=== PATIENT | female | born 1975 | race Caucasian/White ===

== ENCOUNTER 2023-12-25 13:26 | Emergency (ER) | payer MEDICAID, OTHER ==
[~2023-12-25] VITALS: Ht 162.6 cm; Wt 65.9 kg
[2023-12-25 14:27] LABS: Basophils # (auto) 0 10 ^3/uL (0-0.2); Basophils % (auto) 0.8 % (0.0-2.0); Eosinophils # (auto) 0 10 ^3/uL (0-0.8); Eosinophils % (auto) 0.8 % (0.0-7.0); Hemoglobin 13.6 g/dL (12.2-16.2); Lymphocytes # (auto) 1.5 10 ^3/uL (0.4-5.4); Mean Corpuscular Hemoglobin 32.4 pg (28.0-32.0); Mean Corpuscular Hgb Conc. 33.9 g/dL (32.0-36.0); Mean Corpuscular Volume 95.6 fL (80.0-100.0); Monocytes # (auto) 0.2 10 ^3/uL (0-1.3); Monocytes % (auto) 6.8 % (0.0-12.0); Neutrophils # (auto) 1.6 10 ^3/uL (1.6-8.6); Neutrophils % (auto) 47.6 % (37.0-80.0); Red Blood Cells 4.19 10^6/uL (4.0-5.20); Red Cell Distribution Width 12.6 % (11.8-14.3); White Blood Cell 3.4 10^3/uL (4.4-10.8)
[2023-12-25 14:40] LABS: Alanine Aminotransferase 48 U/L (7-40); Albumin 4.1 g/dL (3.2-4.8); Alkaline Phosphatase 76 U/L (46-116); Anion Gap 5 (5-15); Aspartate Aminotransferase 42 U/L (13-40); BUN/Creatinine Ratio 17.1 (10.0-20.0); Bilirubin, Total 0.5 mg/dL (0.2-1.0); Blood Urea Nitrogen 12 mg/dL (9-23); Calcium 9.3 mg/dL (8.7-10.4); Carbon Dioxide 30 mmol/L (20-30); Chloride 105 mmol/L (98-107); Glucose 84 mg/dL (74-106); Lipase 77 U/L (12-53); Potassium 3.9 mmol/L (3.5-5.1); Sodium 140 mmol/L (136-145); Total Protein 6.4 g/dL (5.7-8.2)
[2023-12-25 14:42] VITALS: PULSE 45; RESP 14; O2SAT 99
[2023-12-25 14:54] VITALS: BP 133/74; PULSE 56; RESP 16; O2SAT 100
[2023-12-25] MEDS ORDERED: PANT40TA2 PO (15:36)
[2023-12-25] MEDS: PANTOPRAZOLE 40 MG TAB PO ONE (15:41)
== END 2023-12-25 16:08 | disposition home or self-care (01) ==
LOC: EDBD 13:26 → ER 13:26
DX: K29.00 Acute gastritis without bleeding (principal); Z98.890 Other specified postprocedural states; Z79.899 Other long term (current) drug therapy
CPT/HCPCS: 36415; 76705; 80053; 83690; 84484; 85025; 93005

== ENCOUNTER 2024-03-21 10:20 | Inpatient (IN) | payer MEDICAID ==
[~2024-03-21] VITALS: Ht 149.9 cm; Wt 62.5 kg
[~2024-03-21 10:20] MED LIST: PANT40TA2 PO
[2024-03-21 10:59] LABS: Basophils # (auto) 0 10 ^3/uL (0-0.2); Basophils % (auto) 0.4 % (0.0-2.0); Eosinophils # (auto) 0 10 ^3/uL (0-0.8); Eosinophils % (auto) 0.8 % (0.0-7.0); Hemoglobin 13.8 g/dL (12.2-16.2); Lymphocytes # (auto) 1.5 10 ^3/uL (0.4-5.4); Lymphocytes % (auto) 47.9 % (10.0-50.0); Mean Corpuscular Hemoglobin 32.5 pg (28.0-32.0); Mean Corpuscular Hgb Conc. 33.7 g/dL (32.0-36.0); Mean Corpuscular Volume 96.6 fL (80.0-100.0); Monocytes # (auto) 0.2 10 ^3/uL (0-1.3); Monocytes % (auto) 6.1 % (0.0-12.0); Neutrophils # (auto) 1.4 10 ^3/uL (1.6-8.6); Neutrophils % (auto) 44.8 % (37.0-80.0); Nucleated Red Blood Cells % 0.1 %; Platelet Count (auto) 164 10^3/uL (140-450); Red Blood Cells 4.24 10^6/uL (4.0-5.20); Red Cell Distribution Width 12.6 % (11.8-14.3)
[2024-03-21 11:27] LABS: Alanine Aminotransferase 46 U/L (7-40); Alkaline Phosphatase 89 U/L (46-116); BUN/Creatinine Ratio 16.1 (10.0-20.0); Blood Urea Nitrogen 10 mg/dL (9-23); Calcium 9.3 mg/dL (8.7-10.4); Carbon Dioxide 33 mmol/L (20-30); Chloride 106 mmol/L (98-107); Glucose 87 mg/dL (74-106); Sodium 137 mmol/L (136-145)
[2024-03-21 11:29] LABS: Aspartate Aminotransferase 39 U/L (13-40); Bilirubin, Total 0.4 mg/dL (0.2-1.0)
[2024-03-21 11:30] LABS: Total Protein 6.3 g/dL (5.7-8.2)
[2024-03-21 11:32] LABS: Anion Gap -2 (5-15)
[2024-03-21] MEDS ORDERED: NITROGLYCERIN 0.4 MG SL TAB SL PRN ×2 (13:45)
[2024-03-21] MEDS ORDERED: ONDANSETRON HCL 4 MG/2 ML VIAL IV PRN (13:45)
[2024-03-21] MEDS ORDERED: LORazepam 0.5 MG TAB PO PRN (13:45)
[2024-03-21] MEDS ORDERED: ACETAMINOPHEN 325 MG TAB PO PRN (13:45)
[2024-03-21 14:06] LABS: INR 0.99 (0.9-1.15); Prothrombin Time 10.5 sec (9.3-11.8)
[2024-03-21 21:20] VITALS: PULSE 50; RESP 16; O2SAT 97
[2024-03-21] MEDS: ATORVASTATIN 20 MG TAB PO SCH (22:00)
[2024-03-21] MEDS ORDERED: ENOXAPARIN SOD 60 MG/0.6 ML SYRINGE SC SCH (22:00)
[2024-03-21 22:30] VITALS: BP 105/65; PULSE 52; RESP 20; TEMP 97.8; O2SAT 98
[2024-03-21] MEDS: MORPHINE SULFATE INJ 2 MG/ml SYRG IV PRN (22:42)
[2024-03-21 23:06] VITALS: PULSE 52; RESP 52; O2SAT 98
[2024-03-22] VITALS (7 sets, daily range): BP systolic 92–102; BP diastolic 41–65; PULSE 46–89; RESP 15–17; TEMP 37; O2SAT 95–98
[2024-03-22 06:38] LABS: Basophils # (auto) 0 10 ^3/uL (0-0.2); Basophils % (auto) 0.8 % (0.0-2.0); Eosinophils # (auto) 0 10 ^3/uL (0-0.8); Eosinophils % (auto) 0.9 % (0.0-7.0); Hematocrit 38.8 % (36.0-46.0); Hemoglobin 13.3 g/dL (12.2-16.2); Lymphocytes # (auto) 1.6 10 ^3/uL (0.4-5.4); Lymphocytes % (auto) 50.7 % (10.0-50.0); Mean Corpuscular Hemoglobin 32.6 pg (28.0-32.0); Mean Corpuscular Hgb Conc. 34.3 g/dL (32.0-36.0); Mean Corpuscular Volume 95.1 fL (80.0-100.0); Monocytes # (auto) 0.2 10 ^3/uL (0-1.3); Monocytes % (auto) 6.6 % (0.0-12.0); Neutrophils # (auto) 1.3 10 ^3/uL (1.6-8.6); Platelet Count (auto) 146 10^3/uL (140-450); Red Blood Cells 4.08 10^6/uL (4.0-5.20); Red Cell Distribution Width 12.4 % (11.8-14.3); White Blood Cell 3.1 10^3/uL (4.4-10.8)
[2024-03-22 06:44] LABS: Alanine Aminotransferase 40 U/L (7-40); Albumin 3.5 g/dL (3.2-4.8); Alkaline Phosphatase 77 U/L (46-116); Anion Gap 4 (5-15); Aspartate Aminotransferase 27 U/L (13-40); BUN/Creatinine Ratio 23.7 (10.0-20.0); Bilirubin, Total 0.4 mg/dL (0.2-1.0); Blood Urea Nitrogen 14 mg/dL (9-23); Carbon Dioxide 29 mmol/L (20-30); Chloride 107 mmol/L (98-107); Cholesterol 142 mg/dL (< 200); Glucose 76 mg/dL (74-106); HDL Cholesterol 81 mg/dL (40-59); LDL Cholesterol 46 mg/dL (< 100); Potassium 3.9 mmol/L (3.5-5.1); Sodium 140 mmol/L (136-145); Total Protein 5.6 g/dL (5.7-8.2); Triglycerides 48 mg/dL (< 150)
[2024-03-22] MEDS: ASPirin 81 mg TAB PO SCH (09:37)
[2024-03-22] MEDS: DOCUSATE SOD 100 MG CAP PO SCH (09:37)
== END 2024-03-22 16:50 | disposition home or self-care (01) | DRG 203 ==
LOC: EDBD 10:20 → ER 10:20 → TELE 13:39 → TELE-WESTW 21:58
PROVIDERS: ADMIT Internal Medicine; ATTEND Internal Medicine
DX: R07.89 Other chest pain (principal); E66.01 Morbid (severe) obesity due to excess calories; Z68.27 Body mass index [BMI] 27.0-27.9, adult; R00.1 Bradycardia, unspecified; Z98.84 Bariatric surgery status; Z90.710 Acquired absence of both cervix and uterus; Z98.891 History of uterine scar from previous surgery
CPT/HCPCS: 36415; 71045; 80053; 80061; 83735; 83880; 84443; 84484; 85025; 85379; 85610; 93005; 93306; G0378